=== PATIENT | male | born 1990 | race Two or more races ===

== ENCOUNTER 2020-10-14 13:34 | Emergency (ER) | payer OTHER ==
[~2020-10-14] VITALS: Ht 170.2 cm; Wt 78.0 kg
--- NOTE | 2020-10-14 14:00 | NUR ---
The patient bibs for c/o BUE numbness and diarrhea. The patient is alert and oriented x4. Denies pain. In room air and denies SOB. Respiration regular and unlabored. Abdomen soft and non-distended. Attached to the monitor.
[2020-10-14] MEDS ORDERED: IV NS 0.9% 1,000 ML BAG IV ONE (14:30)
[2020-10-14 14:44] LABS: BASOPHILS # (AUTO) 0.1 K/uL (0.0-0.2); EOSINOPHILS % (AUTO) 0.4 % (0.0-6.0); HEMATOCRIT 43 % (39-51); HEMOGLOBIN 14.6 g/dL (13.5-17.5); LYMPHOCYTES # (AUTO) 1.2 K/uL (0.8-4.8); LYMPHOCYTES % (AUTO) 20.4 % (20.0-44.0); MEAN CORPUSCULAR HGB CONC 34 g/dl (31.0-36.0); MEAN CORPUSCULAR VOLUME 88 fL (80-96); MONOCYTES # (AUTO) 0.6 K/uL (0.1-1.30); MONOCYTES % (AUTO) 10.6 % (2.0-12.0); NEUTROPHILS % (AUTO) 67.6 % (43.0-81.0); PLATELET COUNT (AUTO) 305 K/uL (150-450); RED BLOOD CELL COUNT(AUTO) 4.89 MIL/uL (4.5-6.0); WHITE BLOOD COUNT (AUTO) 5.9 K/uL (4.3-11.0)
[2020-10-14 14:47] LABS: CALCIUM, SERUM 9.6 mg/dL (8.5-10.1); CREATININE 0.8 mg/dL (0.6-1.3); POTASSIUM 3.3 mmol/L (3.5-5.1)
[2020-10-14 14:52] LABS: ALBUMIN 4.6 g/dL (3.4-5.0); BILIRUBIN,DIRECT 0.1 mg/dL (0.0-0.2); BILIRUBIN,TOTAL 0.6 mg/dL (0.2-1.0); TOTAL PROTEIN, SERUM 7.9 g/dL (6.4-8.2)
[2020-10-14] MEDS ORDERED: POTA20TA83 PO (15:12)
[2020-10-14] MEDS ORDERED: LOPE2CAP40 PO (15:12)
[2020-10-14] MEDS ORDERED: SULF1TAB48 PO (15:12)
[2020-10-14] MEDS ORDERED: POTASSIUM CHLORIDE 20 MEQ TAB.PRT.SR PO ONE ×2 (15:15→15:30)
[2020-10-14 15:35] VITALS: BP 125/83
--- NOTE | 2020-10-14 15:35 | NUR ---
IV removed. Catheter intact and site benign. Pressure and 4x4 applied to site. No bleeding noted.Patient discharged to home in stable condition. Written and verbal after care instructions given. Patient verbalizes understanding of instruction.
== END 2020-10-14 15:35 | disposition home or self-care (01) ==
LOC: ER 13:38
DX: R19.7 Diarrhea, unspecified (principal); R20.2 Paresthesia of skin; E87.6 Hypokalemia; F41.9 Anxiety disorder, unspecified; Z79.899 Other long term (current) drug therapy
CPT/HCPCS: 36415; 80048; 80076; 83690; 85025; 93005; 96360; 99284; J7030